=== PATIENT | female | born 1980 | race Caucasian/White ===

== ENCOUNTER 2017-05-16 22:18 | Emergency (ER) | payer SELFPAY ==
[2017-05-16 22:49] VITALS: RESP 18; TEMP 98.4
--- NOTE | 2017-05-16 23:19 | C.PDOC ---
History Of Present Illness The patient, who is currently around 8 weeks (), presents to the ED for evaluation of vaginal bleeding vs hematuria which began today. She denies fever, chills, nausea, vomiting. Time Seen by Provider: 05/16/17 23:18 Chief Complaint (Nursing): Female Genitourinary History Per: Patient History/Exam Limitations: no limitations Onset/Duration Of Symptoms: Hrs Current Symptoms Are (Timing): Still Present Recent travel outside of the [place]: No Additional History Per: Patient Past Medical History Reviewed: Historical Data, Nursing Documentation, Vital Signs Vital Signs: Last Vital Signs Temp 98.4 F 05/17/17 03:03 Pulse 81 05/17/17 03:03 Resp 18 05/17/17 03:03 BP 115/65 05/17/17 03:03 Pulse Ox 97 05/17/17 03:03 - Medical History PMH: No Chronic Diseases Surgical History: No Surg Hx Family History: States: Unknown Family Hx - Social History Hx Alcohol Use: No Hx Substance Use: No - Immunization History Hx Tetanus Toxoid Vaccination: No Review Of Systems Constitutional: Negative for: Fever, Chills Cardiovascular: Negative for: Chest Pain, Palpitations Respiratory: Negative for: Cough, Shortness of Breath Gastrointestinal: Negative for: Nausea, Vomiting, Diarrhea, Constipation Genitourinary: Positive for: Hematuria, Vaginal Bleeding Skin: Negative for: Rash, Lesions, Jaundice, Bruising Physical Exam - Physical Exam Appears: Non-toxic, No Acute Distress Skin: Normal Color, Warm, Dry Head: Normacephalic Oral Mucosa: Moist Neck: Supple Chest: Symmetrical, No Deformity, No Tenderness Cardiovascular: Rhythm Regular, No Murmur Respiratory: No Rales, No Rhonchi, No Wheezing Gastrointestinal/Abdominal: Soft, Tenderness (mild, suprapubic ), No Guarding, No Rebound Extremity: Normal ROM Neurological/Psych: Oriented x3 Gait: Steady ED Course And Treatment - Laboratory Results Result Diagrams: 05/16/17 23:33 05/16/17 23:33 O2 Sat by Pulse Oximetry: 100 (on RA) Pulse Ox Interpretation: Normal - CT Scan/US US Other Rad Studies (CT/US): Interpreted By Me, Read By Radiologist, Radiology Report Reviewed CT/US Interpretation: EXAM: US First Trimester, Transabdominal. CLINICAL HISTORY: 36 years old, female; Pain; complicated by abdominal or pelvic pain; Other: Bleeding;. Gestational age or lmp: 03-04-2017; ; Additional info: Abd pain, flank pain. TECHNIQUE: Real-time transabdominal obstetrical ultrasound of the maternal pelvis and a first trimester. with image documentation. COMPARISON: No relevant prior studies available. FINDINGS: Gestation: Gestational sac. No yolk sac. No pole. Mean sac diameter of 1.83 cm, correlating. with gestational age of 6 weeks 2 days. Uterus/cervix: Apparent 2.8 x 2.6 x 2.6 cm uterine mass. No subchorionic hemorrhage. No cervical. dilatation or effacement. Ovaries: RIGHT ovary: Not visualized. LEFT ovary: Normal. No adnexal masses. Free fluid : No significant free fluid. IMPRESSION: 1. Findings suspicious but not diagnostic of failure. Short-term sonographic followup is. recommended. 2. Possible fibroid. Progress Note: Bloodwork, UA, Pelvic US ordered and reviewed. Lactated Ringers Solution IV administered. Reevaluation Time: 02:56 Reassessment Condition: Improved Disposition Counseled Patient/Family Regarding: Studies Performed, Diagnosis, Need For Followup - Disposition Referrals: Mariajose Matthews MD [Primary Care Provider] - Disposition: HOME/ ROUTINE Disposition Time: 23:18 Condition: FAIR Instructions: Threatened Miscarriage (ED) Forms: [facility] (Greenlandic) - Clinical Impression Clinical Impression: Threatened - Scribe Statement The provider has reviewed the documentation as recorded by the Scribe (Kat Conway) Provider Attestation: All medical record entries made by the Scribe were at my direction and personally dictated by me. I have reviewed the chart and agree that the record accurately reflects my personal performance of the history, physical exam, medical decision making, and the department course for this patient. I have also personally directed, reviewed, and agree with the discharge instructions and disposition.
[2017-05-16] MEDS ORDERED: Lactated Ringer's 1,000 ML IV ONE (23:29)
[2017-05-16 23:38] LABS: WHITE BLOOD COUNT 11.3 K/uL (4.8-10.8)
[2017-05-16] MEDS ORDERED: Lactated Ringer's 1,000 ML ONE (23:42)
[2017-05-16 23:44] LABS: BASO % 0.4 % (0.0-2.0); EOS # 0.1 K/uL (0.0-0.7); EOS % 1.1 % (0.0-4.0); HEMATOCRIT 39.2 % (34.0-47.0); LYMPH # 4.4 K/uL (1.0-4.3); LYMPH % 39.4 % (20.0-40.0); MEAN CELL VOLUME 77.9 fL (81.0-99.0); MEAN CORPUSCULAR HEMOGLOBIN 25.2 pg (27.0-31.0); MEAN CORPUSCULAR HGB CONC 32.4 g/dL (33.0-37.0); MEAN PLATELET VOLUME 8.2 fL (7.2-11.7); MONO # 0.8 K/uL (0.0-0.8); NRBC % 0.6 % (0.0-2.0); RED CELL DISTRIBUTION WIDTH 14.8 % (11.5-14.5)
[2017-05-17] LABS: ALB/GLOB RATIO 1.3 (1.0-2.1); ALKALINE PHOSPHATASE 64 U/L (38-126); ALT/SGPT 28 U/L (9-52); AST/SGOT 23 U/L (14-36); BILIRUBIN,TOTAL 0.4 mg/dL (0.2-1.3); BLOOD UREA NITROGEN 9 mg/dL (7-17); CALCIUM 8.7 mg/dl (8.6-10.4); CARBON DIOXIDE 22 mmol/L (22-30); CHLORIDE 102 mmol/L (98-107); GFR AFRICAN-AMERICAN > 60; GLUCOSE,RANDOM 94 mg/dL (65-105); PH,URINE 5.5 (5.0-8.0); POTASSIUM 3.6 mmol/L (3.6-5.2); RBC URINE 200 /hpf (0-3); SODIUM 137 mmol/L (132-148); TOTAL PROTEIN 7.6 g/dL (6.3-8.3); URINE BILIRUBIN NEGATIVE (NEGATIVE); URINE BLOOD 3+ (NEGATIVE); URINE COLOR YELLOW (YELLOW); URINE GLUCOSE (UA) NEGATIVE (Normal); URINE KETONE NEGATIVE (NEGATIVE); URINE LEUKOCYTE ESTERASE NEGATIVE Leu/uL (Negative); URINE PROTEIN NEGATIVE (NEGATIVE); URINE UROBILINOGEN 0.2 mg/dL (0.2-1.0)
[2017-05-17 00:01] LABS: URINE BACTERIA OCC (<OCC); WBC URINE 3 /hpf (0-5)
--- NOTE | 2017-05-17 01:49 | US ---
EXAM: US First Trimester, Transabdominal CLINICAL HISTORY: 36 years old, female; Pain; complicated by abdominal or pelvic pain; Other: Bleeding; Gestational age or lmp: 03-04-2017; ; Additional info: Abd pain, flank pain TECHNIQUE: Real-time transabdominal obstetrical ultrasound of the maternal pelvis and a first trimester with image documentation. COMPARISON: No relevant prior studies available. FINDINGS: Gestation: Gestational sac. No yolk sac. No pole. Mean sac diameter of 1.83 cm, correlating with gestational age of 6 weeks 2 days. Uterus/cervix: Apparent 2.8 x 2.6 x 2.6 cm uterine mass. No subchorionic hemorrhage. No cervical dilatation or effacement. Ovaries: RIGHT ovary: Not visualized. LEFT ovary: Normal. No adnexal masses. Free fluid: No significant free fluid. IMPRESSION: 1. Findings suspicious but not diagnostic of failure. Short-term sonographic followup is recommended. 2. Possible fibroid.
[2017-05-17 03:04] VITALS: BP 115/65; PULSE 81
[2017-05-17 03:06] VITALS: O2SAT 100
== END 2017-05-17 03:18 | disposition home or self-care (01) ==
LOC: C.ER 22:18 → SUPCPDRO 22:18 → C.ER 05-17 03:18
DX: O20.0 Threatened abortion (principal); Z3A.01 Less than 8 weeks gestation of pregnancy
CPT/HCPCS: 76801; 80053; 81001; 83690; 84702; 84703; 85025; 85610; 85730; 86850; 86900; 99285; J7120

== ENCOUNTER 2017-05-18 23:47 | Emergency (ER) | payer SELFPAY ==
[2017-05-19] MEDS ORDERED: Lactated Ringer's 1,000 ML IV ONE (00:01)
--- NOTE | 2017-05-19 00:01 | C.PDOC ---
History Of Present Illness The patient, who is currently around 8 weeks (), presents to the ED for evaluation of worsening vaginal bleeding associated with abdominal pain which began around 2 days ago. Patient was evaluated in this ED two days ago for same complaint, and found to have hCG count around 4000. Patient followed up with her METROLOGY TECHNICIAN, who states patient's hCG count was around 90,000 at the time of her previous visit. Patient denies fever, chills. Time Seen by Provider: 05/18/17 23:59 Chief Complaint (Nursing): Female Genitourinary History Per: Patient History/Exam Limitations: no limitations Onset/Duration Of Symptoms: Days (2) Current Symptoms Are (Timing): Worse Severity: Moderate Pain Scale Rating Of: 4 Quality Of Discomfort: Cramping, "Pain" Associated Symptoms: denies: Fever, Chills Alleviating Factors: None Recent travel outside of the [place]: No Additional History Per: Patient Abnormal Vaginal Bleeding: Yes Past Medical History Reviewed: Historical Data, Nursing Documentation, Vital Signs Vital Signs: Last Vital Signs Temp 98.2 F 05/19/17 02:13 Pulse 70 05/19/17 02:13 Resp 20 05/19/17 02:13 BP 123/70 05/19/17 02:13 Pulse Ox 100 05/19/17 03:29 - Medical History PMH: No Chronic Diseases Surgical History: No Surg Hx Family History: States: Unknown Family Hx - Social History Hx Alcohol Use: No Hx Substance Use: No - Immunization History Hx Tetanus Toxoid Vaccination: No Hx Influenza Vaccination: No Hx Pneumococcal Vaccination: No Review Of Systems Constitutional: Negative for: Fever, Chills Cardiovascular: Negative for: Chest Pain, Palpitations Respiratory: Negative for: Cough, Shortness of Breath Gastrointestinal: Positive for: Abdominal Pain. Negative for: Nausea, Vomiting , Diarrhea Genitourinary: Positive for: Vaginal Bleeding Musculoskeletal: Negative for: Back Pain Skin: Negative for: Rash, Lesions, Jaundice, Bruising Neurological: Negative for: Weakness, Numbness Physical Exam - Physical Exam Appears: Non-toxic, No Acute Distress Skin: Normal Color, Warm, Dry Head: Normacephalic Eye(s): bilateral: Normal Inspection Oral Mucosa: Moist Neck: Supple Chest: Symmetrical, No Deformity, No Tenderness Cardiovascular: Rhythm Regular, No Murmur Respiratory: No Rales, No Rhonchi, No Wheezing Gastrointestinal/Abdominal: Soft, Tenderness (mild, suprapubic ), No Guarding, No Rebound Back: No CVA Tenderness Extremity: Normal ROM Extremity: Bilateral: Atraumatic Pulses: Left Dorsalis Pedis: Normal, Right Dorsalis Pedis: Normal Neurological/Psych: Oriented x3, Normal Speech, Normal Cognition Gait: Steady ED Course And Treatment - Laboratory Results Result Diagrams: 05/19/17 00:15 05/19/17 00:15 O2 Sat by Pulse Oximetry: 100 (on RA) Pulse Ox Interpretation: Normal Progress Note: Bloodwork, UA, Pelvic US ordered and reviwewed. Morphine IVP, Zofran IVP, and Lactated Ringers IV Solution administered. spoke with dr hinds(labor gang supervisor) ok to discharge and follow up in clinic. Disposition Counseled Patient/Family Regarding: Studies Performed, Diagnosis, Need For Followup, Rx Given - Disposition Referrals: [facility] [Outside] [facility] [Outside] Disposition: HOME/ ROUTINE Disposition Time: 00:01 Condition: FAIR Prescriptions: Ondansetron ODT [Zofran ODT] 1 odt PO BID PRN #6 odt PRN Reason: Nausea/Vomiting oxyCODONE/Acetaminophen [Percocet 5/325 mg Tab] 1 tab PO TID #12 tab Instructions: Threatened Miscarriage (ED) Forms: [facility] (Uzbek) - Clinical Impression Clinical Impression: Threatened - Scribe Statement The provider has reviewed the documentation as recorded by the Scribe (Kat Conway) Provider Attestation: All medical record entries made by the Scribe were at my direction and personally dictated by me. I have reviewed the chart and agree that the record accurately reflects my personal performance of the history, physical exam, medical decision making, and the department course for this patient. I have also personally directed, reviewed, and agree with the discharge instructions and disposition.
[2017-05-19] MEDS ORDERED: Lactated Ringer's 1,000 ML ONE (00:06)
[2017-05-19 00:23] LABS: INR 1.1
[2017-05-19 00:24] LABS: BASO # 0.1 K/uL (0.0-0.2); BASO % 0.3 % (0.0-2.0); EOS # 0.1 K/uL (0.0-0.7); EOS % 0.4 % (0.0-4.0); HEMATOCRIT 38.1 % (34.0-47.0); LYMPH # 3.6 K/uL (1.0-4.3); LYMPH % 23.1 % (20.0-40.0); MEAN CELL VOLUME 77.8 fL (81.0-99.0); MEAN CORPUSCULAR HEMOGLOBIN 25.5 pg (27.0-31.0); MEAN CORPUSCULAR HGB CONC 32.8 g/dL (33.0-37.0); MEAN PLATELET VOLUME 8.4 fL (7.2-11.7); MONO # 1.1 K/uL (0.0-0.8); MONO % 6.7 % (0.0-10.0); RED CELL DISTRIBUTION WIDTH 14.8 % (11.5-14.5); WHITE BLOOD COUNT 15.6 K/uL (4.8-10.8)
--- NOTE | 2017-05-19 01:33 | US ---
EXAM: US , Transvaginal CLINICAL HISTORY: 36 years old, female; Signs and symptoms; Lmp or gestational age (in weeks): 03/04/2017; Other: Vaginal bleeding; ; Additional info: Vaginal bleeding, 6 weeks TECHNIQUE: Real-time transvaginal obstetrical ultrasound of the maternal pelvis and a first trimester with image documentation. Transvaginal imaging was used for better evaluation of the fetus and adnexa. COMPARISON: US - 1ST TRIMESTER SINGLE 2017-05-17 00:40 FINDINGS: Gestation: Gestational sac. No yolk sac. No pole. Mean sac diameter of 1.94 cm, correlating with gestational age of 6 weeks 3 days. Uterus/cervix: No subchorionic hemorrhage. No cervical dilatation or effacement. Ovaries: Normal ovaries. No adnexal masses. Free fluid: No significant free fluid. IMPRESSION: 1. Findings suspicious but not diagnostic of failure. Short-term sonographic followup is recommended.
[2017-05-19 02:02] LABS: ALB/GLOB RATIO 1.3 (1.0-2.1); ALKALINE PHOSPHATASE 62 U/L (38-126); ALT/SGPT 25 U/L (9-52); AST/SGOT 20 U/L (14-36); BILIRUBIN,TOTAL 0.4 mg/dL (0.2-1.3); BLOOD UREA NITROGEN 8 mg/dL (7-17); CALCIUM 9.1 mg/dl (8.6-10.4); CARBON DIOXIDE 24 mmol/L (22-30); CHLORIDE 101 mmol/L (98-107); GFR AFRICAN-AMERICAN > 60; GLUCOSE,RANDOM 105 mg/dL (65-105); POTASSIUM 3.9 mmol/L (3.6-5.2); SODIUM 136 mmol/L (132-148); TOTAL PROTEIN 7.6 g/dL (6.3-8.3)
[2017-05-19 02:14] VITALS: RESP 20; TEMP 98.2
[2017-05-19 03:36] VITALS: BP 123/62; PULSE 74; O2SAT 99
== END 2017-05-19 03:36 | disposition home or self-care (01) ==
LOC: C.ER 23:47
DX: O20.0 Threatened abortion (principal); Z3A.01 Less than 8 weeks gestation of pregnancy
CPT/HCPCS: 76817; 80053; 84702; 85025; 85610; 85730; 86850; 86900; 96361; 96374; 96375; 99285; J1885; J2270; J2405; J7120

== ENCOUNTER 2017-05-19 16:51 | Emergency (ER) | payer OTHER ==
[2017-05-19 16:56] VITALS: TEMP 98
--- NOTE | 2017-05-19 17:22 | C.PDOC ---
History Of Present Illness 36 year old female presents to ED for evaluation of lower abdominal cramping pain, nausea, vomiting, and vaginal bleeding. Patient was seen and discharged from this ED last night with diagnosis of miscarriage. Patient reports she took the medication prescribed to her which made her vomit. Patient did not try another analgesic and comes back to ED with complaints of pain and still bleeding. Otherwise, denies any dizziness, lightheadedness, fever, or other complaints at this time. Time Seen by Provider: 05/19/17 17:05 Chief Complaint (Nursing): Female Genitourinary History Per: Patient, Family History/Exam Limitations: no limitations Onset/Duration Of Symptoms: Days Current Symptoms Are (Timing): Still Present Quality Of Discomfort: "Pain" Associated Symptoms: Nausea, Vomiting. denies: Diarrhea, Loss Of Appetite, Back Pain, Chest Pain, Constipation, Urinary Symptoms Alleviating Factors: None Recent travel outside of the [place]: No Additional History Per: Patient Abnormal Vaginal Bleeding: Yes Past Medical History Reviewed: Historical Data, Nursing Documentation, Vital Signs Vital Signs: Last Vital Signs Temp 98.0 F 05/19/17 16:54 Pulse 88 05/19/17 18:46 Resp 16 05/19/17 18:46 BP 127/82 05/19/17 18:46 Pulse Ox 99 05/19/17 18:46 - Medical History PMH: No Chronic Diseases Surgical History: Family History: States: Unknown Family Hx - Social History Hx Alcohol Use: No Hx Substance Use: No - Immunization History Hx Tetanus Toxoid Vaccination: No Hx Influenza Vaccination: No Hx Pneumococcal Vaccination: No Review Of Systems Except As Marked, All Systems Reviewed And Found Negative. Constitutional: Negative for: Fever, Chills Cardiovascular: Negative for: Chest Pain, Palpitations, Light Headedness Respiratory: Negative for: Shortness of Breath Gastrointestinal: Positive for: Nausea, Vomiting, Abdominal Pain. Negative for : Diarrhea, Constipation Genitourinary: Positive for: Vaginal Bleeding. Negative for: Dysuria, Frequency Musculoskeletal: Negative for: Back Pain Neurological: Negative for: Headache, Dizziness Physical Exam - Physical Exam Appears: Non-toxic, Other (Uncomfortable) Skin: Normal Color, Warm, Dry Head: Atraumatic, Normacephalic Eye(s): bilateral: Normal Inspection Oral Mucosa: Moist Neck: Normal ROM, Supple Chest: Symmetrical Cardiovascular: Rhythm Regular, No Murmur Respiratory: Normal Breath Sounds, No Rales, No Rhonchi, No Wheezing Gastrointestinal/Abdominal: Soft, Tenderness (suprapubic), No Distention, No Guarding, No Rebound Back: No CVA Tenderness Extremity: Normal ROM, No Tenderness, No Deformity, No Swelling Neurological/Psych: Oriented x3, Normal Speech Gait: Steady ED Course And Treatment O2 Sat by Pulse Oximetry: 98 (RA) Pulse Ox Interpretation: Normal Medical Decision Making Medical Decision Making: Prior records reviewed patient has been seen in ED twice for this . Last visit last night and told having miscarriage. Hgb was WNL. Patient treated with meds. US shows gestational sac, no yolk sac, no pole. Case had been discussed with rubber moulding machine operator exploration engineer Dr Humphrey and stable for discharge. Patient took the percocet which made her vomit and complains of nausea and pain. Will order Toradol and Zofran. On re-evaluation she feels unchanged. Percocet PO ordered. On re-evaluation she states feeling mildly better. I explained to the patient at length she is having a miscarriage and to expect cramps and bleeding. Recommend bed rest, oral fluids, and pain medications as needed for symptoms. Instruct her to follow up with her rubber moulding machine operator or clinic in another 48 hours for further evaluation Disposition Counseled Patient/Family Regarding: Diagnosis, Need For Followup, Rx Given - Disposition Referrals: [facility] [Outside] [facility] [Outside] [facility] [Outside] [facility] [Outside] Disposition: HOME/ ROUTINE Disposition Time: 18:40 Condition: STABLE Additional Instructions: You are having a miscarriage. You will experience abdominal or back pain, including cramps that may be mild to severe. Please allow bed rest for the next few days and take pain medicine as needed. Take Ibuprofen with foot to not upset stomach. You will also experience vaginal bleeding from light to heavy. Your bleeding will lighten and lessen after miscarriage, but bleeding may also last 2-3 weeks. Your next period should return in 4-8 weeks. You may use sanitary napkins. Do not take bath, go swimming or douche for 2 weeks. You may also experience nausea, chills or diarrhea. It is important that you follow up with rubber moulding machine operator after miscarriage. If you do not have one please follow up in the clinic and refer to list of names provided to you at discharge. Prescriptions: Ibuprofen [Motrin] 600 mg PO Q8 #30 tab Instructions: Spontaneous Miscarriage (ED) Forms: [facility] (Polish) - POA Present On Arrival: None - Clinical Impression Clinical Impression: Spontaneous - PA / BLOOD BANK LABORATORY TECHNICIAN / Resident Statement MD/DO has reviewed & agrees with the documentation as recorded. - Scribe Statement The provider has reviewed the documentation as recorded by the Scribe Ana Conway All medical record entries made by the Jackieibjuan josé were at my direction and personally dictated by me. I have reviewed the chart and agree that the record accurately reflects my personal performance of the history, physical exam, medical decision making, and the department course for this patient. I have also personally directed, reviewed, and agree with the discharge instructions and disposition.
[2017-05-19] MEDS ORDERED: Oxycodone/Acetaminophen 5/325 mg Tab PO STA (18:05)
[2017-05-19] MEDS ORDERED: Oxycodone/Acetaminophen 5/325 mg Tab ONE (18:13)
[2017-05-19 18:46] VITALS: BP 127/82; PULSE 88; RESP 16
[2017-05-20 08:44] VITALS: O2SAT 98
== END 2017-05-19 18:47 | disposition home or self-care (01) ==
LOC: C.ER 16:51
DX: O03.9 Complete or unspecified spontaneous abortion without complication (principal)
CPT/HCPCS: 96372; 99284; J1885

== ENCOUNTER 2017-05-26 14:47 | Emergency (ER) | payer SELFPAY ==
[2017-05-26] MEDS ORDERED: Sodium Chloride 0.9% 1,000 ML IV ONE (15:50)
--- NOTE | 2017-05-26 16:39 | C.PDOC ---
History Of Present Illness <Sylvia Ac - Last Filed: 05/26/17 18:38> <Shelia Hutchinson A - Last Filed: 05/26/17 19:39> 36 y/o female, , sent to ED from OBGYN Dr Morgan office for evaluation of vaginal bleeding with clots. Pt states she had miscarriage on 05/16/17 and continues to have vaginal bleeding. Denies n/v/d, or any other complaints at this time. (Sylvia Ac) History Per: Patient History/Exam Limitations: no limitations Onset/Duration Of Symptoms: Days Current Symptoms Are (Timing): Still Present Quality Of Discomfort: Cramping Additional History Per: Family Abnormal Vaginal Bleeding: Yes : 2 Para: 1 Miscarriage: 1 <Sylvia Ac Cindy - Last Filed: 05/26/17 18:38> <Shelia Hutchinson A - Last Filed: 05/26/17 19:39> Time Seen by Provider: 05/26/17 15:49 Chief Complaint (Nursing): Female Genitourinary Past Medical History Reviewed: Historical Data, Nursing Documentation, Vital Signs - Medical History PMH: No Chronic Diseases Surgical History: Family History: States: Unknown Family Hx - Social History Hx Alcohol Use: No Hx Substance Use: No - Immunization History Hx Tetanus Toxoid Vaccination: No Hx Influenza Vaccination: No Hx Pneumococcal Vaccination: No <Sylvia Ac Cindy - Last Filed: 05/26/17 18:38> Vital Signs: Last Vital Signs Temp 99.1 F 05/26/17 19:22 Pulse 98 H 05/26/17 19:22 Resp 18 05/26/17 19:22 BP 103/71 05/26/17 19:22 Pulse Ox 98 05/26/17 19:22 Review Of Systems Except As Marked, All Systems Reviewed And Found Negative. Constitutional: Negative for: Fever, Chills Cardiovascular: Negative for: Chest Pain, Palpitations Respiratory: Negative for: Shortness of Breath Gastrointestinal: Positive for: Abdominal Pain. Negative for: Nausea, Vomiting , Diarrhea, Constipation Genitourinary: Positive for: Vaginal Bleeding. Negative for: Dysuria, Frequency Musculoskeletal: Negative for: Back Pain <Sylvia Ac - Last Filed: 05/26/17 18:38> Physical Exam - Physical Exam Appears: Non-toxic, No Acute Distress Skin: Normal Color, Warm, Dry Head: Atraumatic, Normacephalic Eye(s): bilateral: Normal Inspection Cardiovascular: Rhythm Regular, No Murmur Respiratory: Normal Breath Sounds, No Rales, No Rhonchi, No Wheezing Gastrointestinal/Abdominal: Soft, Tenderness (mild suprapubic), No Guarding, No Rebound Extremity: Normal ROM Neurological/Psych: Oriented x3, Normal Speech Gait: Steady <Sylvia Ac - Last Filed: 05/26/17 18:38> ED Course And Treatment - Laboratory Results Result Diagrams: 05/26/17 16:42 05/26/17 16:42 Lab Interpretation: No Acute Changes Urine POC: Positive O2 Sat by Pulse Oximetry: 100 Pulse Ox Interpretation: Normal - CT Scan/US No standard instances Other Rad Studies (CT/US): Read By Radiologist, Radiology Report Reviewed CT/US Interpretation: FINDINGS: UTERUS: Measures 5 x 5.8 x 8.5 cm. Normal in size and appearance. Location of fibroid and size: Anterior measuring 2.1 x 2.2 x 2.2 cm. ENDOMETRIUM: Measures 16.0 mm in diameter. Thickened irregular at heterogeneous endometrium. No visible products of conception. CERVIX: Free fluid identified within the cervical canal. RIGHT OVARY: Measures 1.5 x 2.9 x 2.7 cm. No solid mass. Normal flow. Multiple subcentimeter follicles. LEFT OVARY: Measures 1.6 x 2.7 x 3 cm. No solid mass. Normal flow. Multiple subcentimeter follicles. FREE FLUID: No significant free fluid noted. OTHER FINDINGS: None. IMPRESSION: Thickened heterogeneous endometrium without appreciable increase in vascularity. No visible products of conception within the uterus or adnexal regions. Fluid identified in the cervical canal consistent with history. Progress Note: Blood work, UA, OB transvaginal ultrasound ordered and reviewed. Pt was given IV fluids. Treated with cytotec 400 mcg into vagina. Discharge to home in stable condition Reassessment Condition: Unchanged - Physician Consult Information Physician Contacted: Amparo Morgan Outcome Of Conversation: cytotec and discharge <Sylvia Ac - Last Filed: 05/26/17 18:38> - Laboratory Results Result Diagrams: 05/26/17 16:42 05/26/17 16:42 <Shelia Hutchinson - Last Filed: 05/26/17 19:39> Medical Decision Making <Sylvia Ac - Last Filed: 05/26/17 18:38> <Shelia Hutchinson - Last Filed: 05/26/17 19:39> Medical Decision Making: Case discussed with Dr Amparo Morgan regarding vaginal bleeding S/P miscarage and request cytotec 400 mcg into vagina and follow up in office on monday (Sylvia Ac) Disposition Discussed With Dr.: Amparo Morgan Doctor Will See Patient In The: Office Counseled Patient/Family Regarding: Studies Performed, Diagnosis, Need For Followup, Rx Given - Disposition Disposition Time: 18:30 - POA Present On Arrival: None <Sylvia Ac - Last Filed: 05/26/17 18:38> <Shelia Hutchinson - Last Filed: 05/26/17 19:39> - Disposition Referrals: Amparo Morgan MD [Staff Provider] - Disposition: HOME/ ROUTINE Condition: STABLE Additional Instructions: Follow up with Dr Morgan on monday for further evaluation Prescriptions: Naproxen [Naprosyn] 1 tab PO BID PRN #25 tab PRN Reason: Pain Instructions: Spontaneous Miscarriage (ED) Forms: [facility] (Upper Sorbian) - Clinical Impression Clinical Impression: Spontaneous - PA / SPEECH THERAPIST / Resident Statement MD/DO has reviewed & agrees with the documentation as recorded. - Scribe Statement The provider has reviewed the documentation as recorded by the Scribe <Sylvia Ac - Last Filed: 05/26/17 18:38> <Shelia Hutchinson - Last Filed: 05/26/17 19:39> - Scribe Statement Ana Conway All medical record entries made by the Scribe were at my direction and personally dictated by me. I have reviewed the chart and agree that the record accurately reflects my personal performance of the history, physical exam, medical decision making, and the department course for this patient. I have also personally directed, reviewed, and agree with the discharge instructions and disposition. (Sylvia Ac
[2017-05-26 16:52] LABS: BASO # 0.1 K/uL (0.0-0.2); BASO % 0.8 % (0.0-2.0); EOS # 0.1 K/uL (0.0-0.7); EOS % 1.2 % (0.0-4.0); HEMATOCRIT 39.1 % (34.0-47.0); LYMPH # 3.3 K/uL (1.0-4.3); LYMPH % 28.5 % (20.0-40.0); MEAN CELL VOLUME 78.3 fL (81.0-99.0); MEAN CORPUSCULAR HEMOGLOBIN 25.7 pg (27.0-31.0); MEAN CORPUSCULAR HGB CONC 32.8 g/dL (33.0-37.0); MONO # 0.8 K/uL (0.0-0.8); MONO % 7.2 % (0.0-10.0); RED CELL DISTRIBUTION WIDTH 14.9 % (11.5-14.5); WHITE BLOOD COUNT 11.6 K/uL (4.8-10.8)
[2017-05-26 16:58] LABS: RBC URINE 14 /hpf (0-3); URINE BACTERIA RARE (<OCC); URINE BILIRUBIN NEGATIVE (NEGATIVE); URINE BLOOD 3+ (NEGATIVE); URINE COLOR Yellow (YELLOW); URINE GLUCOSE (UA) NORMAL (Normal); URINE KETONE NEGATIVE (NEGATIVE); URINE LEUKOCYTE ESTERASE TRACE Leu/uL (Negative); URINE PROTEIN NEGATIVE (NEGATIVE); URINE UROBILINOGEN NORMAL mg/dL (0.2-1.0); WBC URINE 7 /hpf (0-5)
[2017-05-26 17:06] LABS: ALB/GLOB RATIO 1.2 (1.0-2.1); ALKALINE PHOSPHATASE 74 U/L (38-126); ALT/SGPT 28 U/L (9-52); AST/SGOT 29 U/L (14-36); BILIRUBIN,TOTAL 0.4 mg/dL (0.2-1.3); BLOOD UREA NITROGEN 11 mg/dL (7-17); CALCIUM 8.8 mg/dl (8.6-10.4); CARBON DIOXIDE 23 mmol/L (22-30); CHLORIDE 104 mmol/L (98-107); GFR AFRICAN-AMERICAN > 60; GLUCOSE,RANDOM 98 mg/dL (65-105); POTASSIUM 3.9 mmol/L (3.6-5.2); SODIUM 140 mmol/L (132-148); TOTAL PROTEIN 8.5 g/dL (6.3-8.3)
[2017-05-26 17:59] VITALS: RESP 18
--- NOTE | 2017-05-26 18:11 | US ---
HISTORY: Abdominal pain, bleeding. Menstrual status: LMP 03/04/2017. By history, negative test (concurrent with this examination). Negative urine HCG . COMPARISON: 05/19/2017. Summary of findings on the comparison examination: Gestation: Gestational sac. No yolk sac. No pole. Mean sac diameter of 1.94 cm, correlating with gestational age of 6 weeks 3 days. TECHNIQUE: Transabdominal, transvaginal. Real -time technique with 2D, duplex and color Doppler. FINDINGS: UTERUS: Measures 5 x 5.8 x 8.5 cm. Normal in size and appearance. Location of fibroid and size: Anterior measuring 2.1 x 2.2 x 2.2 cm ENDOMETRIUM: Measures 16.0 mm in diameter. Thickened irregular at heterogeneous endometrium. No visible products of conception. CERVIX: Free fluid identified within the cervical canal. RIGHT OVARY: Measures 1.5 x 2.9 x 2.7 cm. No solid mass. Normal flow. Multiple subcentimeter follicles. LEFT OVARY: Measures 1.6 x 2.7 x 3 cm. No solid mass. Normal flow. Multiple subcentimeter follicles. FREE FLUID: No significant free fluid noted. OTHER FINDINGS: None. IMPRESSION: Thickened heterogeneous endometrium without appreciable increase in vascularity. No visible products of conception within the uterus or adnexal regions. Fluid identified in the cervical canal consistent with history.
[2017-05-26 19:23] VITALS: BP 103/71; TEMP 99.1; O2SAT 98
[2017-05-26 19:26] VITALS: PULSE 98
== END 2017-05-26 19:30 | disposition home or self-care (01) ==
LOC: C.ER 14:47
DX: O03.9 Complete or unspecified spontaneous abortion without complication (principal)
CPT/HCPCS: 76830; 76856; 80053; 81001; 84702; 84703; 85025; 86850; 86900; 96360; 99285; J7040

== ENCOUNTER 2018-03-08 13:44 | Emergency (ER) | payer OTHER ==
[2018-03-08 13:56] VITALS: O2SAT 99
[2018-03-08 14:27] LABS: BASO # 0.1 K/uL (0.0-0.2); EOS # 0.2 K/uL (0.0-0.7); EOS % 1.6 % (0.0-4.0); HEMOGLOBIN 12.6 g/dL (11.0-16.0); LYMPH # 4.5 K/uL (1.0-4.3); LYMPH % 39.5 % (20.0-40.0); MEAN CELL VOLUME 75.2 fL (81.0-99.0); MEAN CORPUSCULAR HEMOGLOBIN 25.1 pg (27.0-31.0); MEAN CORPUSCULAR HGB CONC 33.3 g/dL (33.0-37.0); MEAN PLATELET VOLUME 8.2 fL (7.2-11.7); MONO # 0.8 K/uL (0.0-0.8); MONO % 7.3 % (0.0-10.0); NEUT # 5.7 K/uL (1.8-7.0); NEUT % 50.6 % (50.0-75.0); NRBC % 0.1 % (0.0-2.0); RBC 5.04 Mil/uL (3.80-5.20); RED CELL DISTRIBUTION WIDTH 15.2 % (11.5-14.5); WHITE BLOOD COUNT 11.3 K/uL (4.8-10.8)
[2018-03-08 14:34] LABS: INR 1.1; PROTHROMBIN TIME 11.8 SECONDS (9.7-12.2)
[2018-03-08 14:41] LABS: ALB/GLOB RATIO 1.3 (1.0-2.1); ALBUMIN 4.6 g/dL (3.5-5.0); ALT/SGPT 8 U/L (9-52); AST/SGOT 18 U/L (14-36); BLOOD UREA NITROGEN 8 mg/dL (7-17); CALCIUM 9.9 mg/dl (8.6-10.4); GFR NON-AFRICAN AMERICAN > 60; HDL CHOLESTEROL 45 mg/dL (30-70)
[2018-03-08 14:52] LABS: LDL CHOLESTEROL 143 mg/dL (0-129)
[2018-03-08 14:55] LABS: SQUAMOUS EPITHIAL < 1 /hpf (0-5); URINE BACTERIA RARE (<OCC); URINE BILIRUBIN NEGATIVE (NEGATIVE); URINE BLOOD NEGATIVE (NEGATIVE); URINE CLARITY Clear (Clear); URINE COLOR Colorless (YELLOW); URINE GLUCOSE (UA) NORMAL (Normal); URINE LEUKOCYTE ESTERASE NEG Leu/uL (Negative); URINE PROTEIN NEGATIVE (NEGATIVE); URINE UROBILINOGEN NORMAL mg/dL (0.2-1.0)
--- NOTE | 2018-03-08 14:59 | RAD ---
Date of service: 03/08/2018 HISTORY: adm, seizure COMPARISON: No prior. FINDINGS: LUNGS: No active pulmonary disease. PLEURA: No significant pleural effusion identified, no pneumothorax apparent. CARDIOVASCULAR: No radiographic findings to suggest acute or significant cardiovascular disease. OSSEOUS STRUCTURES: No significant abnormalities. VISUALIZED UPPER ABDOMEN: Normal. OTHER FINDINGS: None. IMPRESSION: No active disease. Concordant results with the preliminary interpretation rendered by the emergency department physician procedure.
[2018-03-08 15:00] LABS: HCG,QUALITATIVE URINE NEGATIVE (NEGATIVE)
--- NOTE | 2018-03-08 15:40 | CT ---
Date of service: 2018-03-08 14:49:14 PROCEDURE: CT HEAD WITHOUT CONTRAST. HISTORY: seizures, R body weak, + abn CT in [place] COMPARISON: None available. TECHNIQUE: Axial computed tomography images were obtained through the head/brain without intravenous contrast. Radiation dose: Total exam DLP = 1037 mGy-cm. This CT exam was performed using one or more of the following dose reduction techniques: Automated exposure control, adjustment of the mA and/or kV according to patient size, and/or use of iterative reconstruction technique. FINDINGS: HEMORRHAGE: No intracranial hemorrhage. BRAIN: There is a large hypodense area measuring at least 4.2 x 4.4 cm on axial series 4, image 45 in the left paracentral posterior frontal parietal region. A smaller hypodense masslike hypodensity with surrounding peripheral edema is favored. Purse ice location intra versus extra-axial is not clear.-there is ipsilateral partial left cerebral sulcal effacement paddle with ipsilateral left cerebral edema. No el midline shift is noted. There is however some mass effect on the right interhemispheric falx. There is trace increased CSF like density to the right of the interhemispheric falx on axial series 4, image 32. No dilatation or significant asymmetry of the lateral ventricles is seen. VENTRICLES: Unremarkable. No hydrocephalus. As above. Mild developmental ventricular anomalous development is noted.. There is sub possible minimal fullness to the 3rd ventricle. The 4th ventricle is normal in size. CALVARIUM: Unremarkable. PARANASAL SINUSES: Unremarkable as visualized. No significant inflammatory changes. MASTOID AIR CELLS: Unremarkable as visualized. No inflammatory changes. OTHER FINDINGS: None. IMPRESSION: Left paracentral large masslike hypodensity with surrounding edema.. Diagnosis of exclusion is a intracranial mass. Ischemia/infarct changes are not excluded. An MRI of the brain without with contrast with diffusion-weighted imaging is recommended for further evaluation. Comments: Prior to this dictation findings were discussed with the ER physician Dr. Garfield Santos
--- NOTE | 2018-03-08 16:15 | C.PDOC ---
History Of Present Illness 37 year old female with history of seizures presents to the ED for further evaluation of a left brain mass vaguely noted in a CAT scan taken in [place] earlier this month. Patient reports left upper head discomfort with occasional right arm and bilateral leg numbness with paresthesia, and weakness leading to bereft tonic-clonic seizures with postictal phase lasting 15-20 minutes for the last 2 years. Reports feeling completely normal after the episode. Notes seizure are infrequent. Denies changes in vision, weight loss, fever and any other associated symptoms. Time Seen by Provider: 03/08/18 14:05 Chief Complaint (Nursing): Lower Extremity Problem/Injury History Per: Patient History/Exam Limitations: no limitations Number Of Seizures: One Length Of Seizures (Duration): Minutes Past Medical History Reviewed: Historical Data, Nursing Documentation, Vital Signs Vital Signs: Last Vital Signs Temp 98.4 F 03/08/18 13:52 Pulse 99 H 03/08/18 13:52 Resp 20 03/08/18 13:52 BP 123/85 03/08/18 13:52 Pulse Ox 99 03/08/18 13:52 Surgical History: Family History: States: Unknown Family Hx - Social History Hx Alcohol Use: No Hx Substance Use: No - Immunization History Hx Tetanus Toxoid Vaccination: No Hx Influenza Vaccination: No Hx Pneumococcal Vaccination: No Review Of Systems Except As Marked, All Systems Reviewed And Found Negative. Constitutional: Positive for: Weakness (before seizures start), Other (left upper head discomfort). Negative for: Fever, Weight loss Eyes: Negative for: Vision Change Physical Exam - Physical Exam Appears: Non-toxic Skin: Normal Color, Warm, Dry Head: Atraumatic, Normacephalic, Other (vague mass presented in film of CAT scan. muscle mass bilaterally. ) Eye(s): bilateral: Normal Inspection Oral Mucosa: Moist Neck: Normal ROM, Supple Chest: Symmetrical, No Deformity Cardiovascular: Rhythm Regular Respiratory: Normal Breath Sounds, No Accessory Muscle Use, Other (No acute respiratory distress) Extremity: Normal ROM (x4) Neurological/Psych: Oriented x3, Normal Speech, Normal Motor, Normal Sensation Gait: Steady ED Course And Treatment - Laboratory Results Result Diagrams: 03/08/18 14:23 03/08/18 14:23 Lab Interpretation: Normal (ua neg.) Urine POC: Negative ECG: Interpreted By Me ECG Rhythm: Sinus Rhythm ECG Interpretation: Normal Rate From EC O2 Sat by Pulse Oximetry: 99 (RA) Pulse Ox Interpretation: Normal - Radiology CXR: Interpreted by Me CXR Interpretation: Yes: No Acute Disease - Other Rad CXR X-Ray: Viewed By Me, Read By Radiologist Interpretation: IMPRESSION: No active disease. - CT Scan/US CT Head Other Rad Studies (CT/US): Read By Radiologist CT/US Interpretation: IMPRESSION: Left paracentral large masslike hypodensity with surrounding edema.. Diagnosis of exclusion is a intracranial mass. Ischemia/infarct changes are not excluded. An MRI of the brain without with contrast with diffusion-weighted imaging is recommended for further evaluation. Comments: Prior to this dictation findings were discussed with the ER physician Dr. Garfield Santos Progress Note: keppra PO Reevaluation Time: 16:13 Reassessment Condition: Unchanged (remains asymptomatic) - Physician Consult Information Outcome Of Conversation: 1540 d/w Dr. Munoz- NSGY electrical construction project manager- recommends non- emrgent f/u @ [facility] NSGY as pt requires Neuro Navigation instruments not available in the [employer] System. Medical Decision Making Medical Decision Making: indolent course over 2 yrs, with occasional seizures (prob exacerbated by long travel from [place] yesterday) and already had + CT results in hand from [facility] from earlier this month. Appropriate NSGY care not available here, started on Keppra and opt f/u @ [facility] instructed. Inpatient Medicine eval not required at this time as no further seizure activity since yesterday, tolerating Keppra PO well, not driving (and instructing not to) has constant supervision (/daughter @home, normal neuro exam, and high confidence pt and family can f/u @ [facility] tomorrow. No ED to ED transfer required at this time. Plan --CT Head w/o Contrast --CXR --EKG --Blood sent. --Urinalysis --Urine HCG --Given Keppra Update/Progress: --Paged network professional neurologist Dr. Ochoa,pending call-back --Consulted with hospitalist, Dr. Akers regarding CT of the head. Disposition Doctor Will See Patient In The: Office Counseled Patient/Family Regarding: Studies Performed, Diagnosis - Disposition Referrals: [facility] [Outside] [employer] [facility] [Outside] [facility] [Outside] Yue Ochoa MD [Staff Provider] - Disposition: HOME/ ROUTINE Disposition Time: 16:15 Condition: GOOD Additional Instructions: take Keppra 500 mg twice a day to help prevent seizures Follow-up @ [facility] NeuroSurgery- call for appt or present to their ER the brain mass you have may require NeuroNavigation Equipment not available in the [employer] [facility] May follow-up w Dr. Ochoa- Neurologist- regarding seizure medicines and seizures probably related to your brain mass. Prescriptions: levETIRAcetam [Keppra] 500 mg PO BID #60 tab Instructions: Seizures, Adult (DC), Brain Tumor, Adult (DC) Forms: [employer] (Tajik) - Clinical Impression Clinical Impression: Brain mass, Seizure - Scribe Statement The provider has reviewed the documentation as recorded by the Scribe (Barby Balderas) Provider Attestation: All medical record entries made by the Scribe were at my direction and personally dictated by me. I have reviewed the chart and agree that the record accurately reflects my personal performance of the history, physical exam, medical decision making, and the department course for this patient. I have also personally directed, reviewed, and agree with the discharge instructions and disposition.
--- NOTE | 2018-03-08 16:15 | C.PDOC ---
Time Seen by Provider: 03/08/18 14:05 Chief Complaint (Nursing): Lower Extremity Problem/Injury Past Medical History Vital Signs: Last Vital Signs Temp 98.4 F 03/08/18 13:52 Pulse 99 H 03/08/18 13:52 Resp 20 03/08/18 13:52 BP 123/85 03/08/18 13:52 Pulse Ox 99 03/08/18 13:52 Surgical History: Family History: States: Unknown Family Hx - Social History Hx Alcohol Use: No Hx Substance Use: No - Immunization History Hx Tetanus Toxoid Vaccination: No Hx Influenza Vaccination: No Hx Pneumococcal Vaccination: No ED Course And Treatment - Laboratory Results Result Diagrams: 03/08/18 14:23 03/08/18 14:23 O2 Sat by Pulse Oximetry: 99 (RA) Pulse Ox Interpretation: Normal - Other Rad CXR X-Ray: Viewed By Me, Read By Radiologist Interpretation: IMPRESSION: No active disease. - CT Scan/US CT Head Other Rad Studies (CT/US): Read By Radiologist CT/US Interpretation: IMPRESSION: Left paracentral large masslike hypodensity with surrounding edema.. Diagnosis of exclusion is a intracranial mass. Ischemia/infarct changes are not excluded. Disposition - Disposition Referrals: [facility] [Outside] [facility] [employer] [facility] [Outside] [facility] [Outside] Yue Ochoa MD [Staff Provider] - Additional Instructions: take Keppra 500 mg twice a day to help prevent seizures Follow-up @ [facility] Neuro[facility]- call for appt or present to their ER the brain mass you have may require NeuroNavigation Equipment not available in the [employer] [facility] May follow-up w Dr. Ochoa- Neurologist- regarding seizure medicines and seizures probably related to your brain mass. Prescriptions: levETIRAcetam [Keppra] 500 mg PO BID #60 tab Instructions: Seizures, Adult (DC), Brain Tumor, Adult (DC) Forms: [employer] (Romanian) - Clinical Impression Clinical Impression: Brain mass, Seizure
[2018-03-08 16:19] VITALS: BP 124/81; PULSE 86; RESP 18; TEMP 98.6
--- NOTE | 2018-03-08 19:19 | C.PDOC ---
ED Additional Note - Physician Additional Note Physician Additional Note: I was called by ER physician for evaluation of abnormal CAT scan. Ct report showed brain mass with edema. I asked ER physician to call and discuss with neurosurgeon promotions assistant .
--- NOTE | 2018-03-09 11:37 | CARD ---
APPROVED REPORT Date of service: 03/08/2018 EKG Measurement Heart [id number] CT [id number] <Conclusion> Normal sinus rhythm Nonspecific ST and T wave abnormality Abnormal ECG
== END 2018-03-08 16:49 | disposition home or self-care (01) ==
LOC: C.ER 13:44
DX: R56.9 Unspecified convulsions (principal); G93.9 Disorder of brain, unspecified

== ENCOUNTER 2018-05-27 01:00 | Inpatient (IN) | payer SELFPAY ==
[2018-05-27 01:32] LABS: BASO # 0.1 K/uL (0.0-0.2); BASO % 0.8 % (0.0-2.0); EOS # 0.2 K/uL (0.0-0.7); HEMOGLOBIN 9.2 g/dL (11.0-16.0); LYMPH # 4.6 K/uL (1.0-4.3); MEAN CELL VOLUME 75.6 fL (81.0-99.0); MEAN CORPUSCULAR HEMOGLOBIN 23.5 pg (27.0-31.0); MEAN CORPUSCULAR HGB CONC 31.1 g/dL (33.0-37.0); MEAN PLATELET VOLUME 7.7 fL (7.2-11.7); MONO # 0.8 K/uL (0.0-0.8); MONO % 7.3 % (0.0-10.0); NEUT # 5.3 K/uL (1.8-7.0); NEUT % 47.9 % (50.0-75.0); RBC 3.89 Mil/uL (3.80-5.20); RED CELL DISTRIBUTION WIDTH 16.1 % (11.5-14.5); WHITE BLOOD COUNT 11.1 K/uL (4.8-10.8)
[2018-05-27] MEDS ORDERED: Sodium Chloride 0.9% 1,000 ML ONE ×3 (01:33→09:34)
[2018-05-27 01:41] LABS: ALB/GLOB RATIO 1.4 (1.0-2.1); ALBUMIN 4.4 g/dL (3.5-5.0); ALT/SGPT 11 U/L (9-52); AST/SGOT 17 U/L (14-36); BLOOD UREA NITROGEN 13 mg/dL (7-17); CALCIUM 9.3 mg/dl (8.6-10.4); GFR NON-AFRICAN AMERICAN > 60
[2018-05-27] MEDS ORDERED: Sodium Chloride 0.9% 1,000 ML IV ONE ×2 (01:50→02:34)
[2018-05-27 02:49] LABS: HCG,QUALITATIVE URINE POSITIVE (NEGATIVE)
[2018-05-27 02:51] LABS: SQUAMOUS EPITHIAL < 1 /hpf (0-5); URINE BACTERIA RARE (<OCC); URINE BILIRUBIN NEGATIVE (NEGATIVE); URINE BLOOD 3+ (NEGATIVE); URINE CLARITY Clear (Clear); URINE COLOR Straw (YELLOW); URINE GLUCOSE (UA) NORMAL (Normal); URINE LEUKOCYTE ESTERASE NEG Leu/uL (Negative); URINE PROTEIN NEGATIVE (NEGATIVE); URINE UROBILINOGEN NORMAL mg/dL (0.2-1.0)
--- NOTE | 2018-05-27 04:28 | C.PDOC ---
History Of Present Illness 37 year old female presents to the ED with her spouse for evaluation of heavy vaginal bleeding which began at around 20:00 today. Patient underwent a dilation and curettage procedure for termination of around 4 weeks ago. Patient states she had very minimal bleeding following the procedure. Current episode is patient's first episode of vag bleeding following the procedure. Patient states she has never experienced such heavy bleeding as right now, and reports she has been changing pads every ten minutes. She also reports slight dizziness. Pt has known h/o of ? malignant brain tumor and is scheduled for surgery in jun 2018. She denies abdominal pain, back pain, clots or tissue. History obtained by patient's spouse, who is at bedside. Time Seen by Provider: 05/27/18 01:18 Chief Complaint (Nursing): Female Genitourinary History Per: Patient, Family (spouse ) History/Exam Limitations: no limitations Onset/Duration Of Symptoms: Hrs Current Symptoms Are (Timing): Still Present Additional History Per: Patient Abnormal Vaginal Bleeding: Yes Past Medical History Reviewed: Historical Data, Nursing Documentation, Vital Signs Vital Signs: Last Vital Signs Temp 98.8 F 05/27/18 01:09 Pulse 100 H 05/27/18 01:09 Resp BP 108/73 05/27/18 01:09 Pulse Ox 100 05/27/18 01:09 - Medical History PMH: Seizures Surgical History: Family History: States: Unknown Family Hx - Social History Hx Alcohol Use: No Hx Substance Use: No - Immunization History Hx Tetanus Toxoid Vaccination: No Hx Influenza Vaccination: No Hx Pneumococcal Vaccination: No Review Of Systems Gastrointestinal: Negative for: Abdominal Pain Genitourinary: Positive for: Vaginal Bleeding Musculoskeletal: Negative for: Back Pain Neurological: Positive for: Dizziness Physical Exam - Physical Exam Appears: Non-toxic, No Acute Distress Skin: Warm, Dry, Pale (slight) Head: Atraumatic, Normacephalic Eye(s): bilateral: Normal Inspection Oral Mucosa: Moist Neck: Supple Chest: Symmetrical, No Deformity, No Tenderness Cardiovascular: Rhythm Regular Respiratory: Normal Breath Sounds, No Rhonchi, No Wheezing Gastrointestinal/Abdominal: Soft, No Tenderness, No Guarding, No Rebound Pelvic: Vaginal Bleeding (active ), No Cervical Motion Tenderness, No Adnexal Tenderness, Other (cervical os is closed ) Neurological/Psych: Oriented x3, Normal Speech, Normal Cognition Gait: Steady ED Course And Treatment - Laboratory Results Result Diagrams: 05/27/18 04:48 05/27/18 01:29 O2 Sat by Pulse Oximetry: 100 (on RA ) Pulse Ox Interpretation: Normal - CT Scan/US pelvic ultrasound Other Rad Studies (CT/US): Read By Radiologist, Radiology Report Reviewed CT/US Interpretation: Ultrasound of the pelvis, transvaginal. Indication: Pain and vaginal bleeding after D&C 3 weeks ago. Technique: Transvaginal real-time ultrasound images were obtained. Findings: Thick heterogeneous endometrium with increased vascularity. The endometrium measures 17.8 mm in thickness. Unremarkable cervix measuring 3.6 cm in length. The uterus measures 9.3x7.7x6.7 cm. Normal left ovary. Right ovarian cyst measuring 1.4 cm. The left ovary measures at 10.1 cc in volume. The right ovary measures 17.6 cc in volume. Impression: Heterogeneously thickened endometrium containing debris with increased vascularity, probably retained products of conception. Minimal fluid in the endometrial cavity. Right ovarian simple cyst. No evidence of ovarian torsion. Progress Note: Bloodwork, urinalysis, Pelvic Ultrasound ordered. IV Fluids and Tylenol PO given. Patient has beta count of 257. Ultrasound result was reviewed. Case discussed with Dr. Morgan (patient's CARD DECORATOR), who would like Angela Dietrich (CARD DECORATOR installation tech) to evaluate the patient at bedside. Pt was evaluated by Dr Conway at bedside whorequested that US be reviewed by in-house radiologist in morning for final disposition. Pt and relative understand plan. Pt remained stable in no painful or hematologic distress, VSS Disposition - Disposition Disposition Time: 07:01 Condition: STABLE Forms: [employer] (Macedonian) - Clinical Impression Clinical Impression: Vaginal bleeding - PA / INFORMATION SECURITY MANAGER / Resident Statement MD/DO has reviewed & agrees with the documentation as recorded. - Scribe Statement The provider has reviewed the documentation as recorded by the Scribe (Kat Conway) All medical record entries made by the Scribe were at my direction and personally dictated by me. I have reviewed the chart and agree that the record accurately reflects my personal performance of the history, physical exam, m edical decision making, and the department course for this patient. I have also personally directed, reviewed, and agree with the discharge instructions and disposition. Physician Patient Turnover Patient Signed Over To: Tamika Ramirez Handoff Comments: Pending official US report for OB reassessment and plan
[2018-05-27 04:53] LABS: HEMOGLOBIN 8.1 g/dL (11.0-16.0); MEAN CELL VOLUME 76.1 fL (81.0-99.0); MEAN CORPUSCULAR HEMOGLOBIN 23.8 pg (27.0-31.0); MEAN CORPUSCULAR HGB CONC 31.2 g/dL (33.0-37.0); MEAN PLATELET VOLUME 7.4 fL (7.2-11.7); RBC 3.4 Mil/uL (3.80-5.20); RED CELL DISTRIBUTION WIDTH 16.3 % (11.5-14.5); WHITE BLOOD COUNT 10.5 K/uL (4.8-10.8)
--- NOTE | 2018-05-27 06:02 | CP.PCM.CON ---
History of Present Illness - History of Present Illness History of Present Illness: vaginal bleeding history obtained from patient and in Bolivian and [place] 37 yo s/p D&C for elective termination done in the office of Dr. Morgan approximately 3-4 weeks ago. Since then the patient has been having some vaginal bleeding but denies pain. She has been following up in Dr. Morgan's office and having in office ultrasounds. The patient and her were told that everything was normal. Last night at around 8pm she had heavy vaginal bleeding that soaked through her clothing. She came to the hospital around midnight and passed some clots. Since then her bleeding has subsided and she has only changed one pad. She denies feeling dizzy, feeling short of breath or having chest pain. The patient also has a brain tumor. She had a seizure and upon workup was informed of a brain mass. She has been following with neruologist Dr. Herndon ([facility]) and neurosurgeon Dr. mSith ([facility]). She has brain surgery scheduled in Jun 2018. Review of Systems - Review of Systems Systems not reviewed;Unavailable: Language Barrier (history obtained in [place] from patient and in Bol[place]ian from ) - Constitutional Constitutional: As Per HPI - Genitourinary Genitourinary: As Per HPI - Reproductive: Female Reproductive:Female: As Per HPI Past Patient History - Infectious Disease Hx of Infectious Diseases: None - Past Medical History & Family History Past Family History: Reviewed and not pertinent - Past Social History Smoking Status: Never Smoked - NEUROLOGICAL Hx Neurological Disorder: Yes (brain tumor) Hx Seizures: Yes - GENITOURINARY/GYNECOLOGICAL Hx Sexually Transmitted Disorders: No : 3 Para: 1 (CS in [place] ) Termination of : 1 - PSYCHIATRIC Hx Substance Use: No - SURGICAL HISTORY Hx Surgeries: Yes Hx Section: Yes (1) Other/Comment: in office D&C - ANESTHESIA Hx Anesthesia: No Hx Anesthesia Reactions: No Meds Allergies/Adverse Reactions: Allergies Allergy/AdvReac Type Severity Reaction Status Date / Time No Known Allergies Allergy Verified 03/08/18 13:55 Physical Exam - GI/Abdominal Exam GI & Abdominal Exam: Normal Bowel Sounds, Soft - Exam Speculum exam: NORMAL SPECULUM EXAM Bimanual exam: NORMAL BIMANUAL EXAM (no vaginal bleeding, retroverted small uterus, closed cervix) Results - Vital Signs Recent Vital Signs: Last Vital Signs Temp 98.8 F 05/27/18 01:09 Pulse 92 H 05/27/18 05:50 Resp 18 05/27/18 05:50 BP 117/78 05/27/18 05:50 Pulse Ox 99 05/27/18 05:50 - Labs Result Diagrams: 05/27/18 04:48 05/27/18 01:29 Labs: Laboratory Results - last 24 hr 05/27/18 05/27/18 05/27/18 01:29 01:29 02:44 WBC 11.1 H RBC 3.89 Hgb 9.2 L D Hct 29.5 L MCV 75.6 L MCH 23.5 L MCHC 31.1 L RDW 16.1 H Plt Count 332 MPV 7.7 Neut % (Auto) 47.9 L Lymph % (Auto) 42.0 H [place] % (Auto) 7.3 Eos % (Auto) 2.0 Baso % (Auto) 0.8 Neut # (Auto) 5.3 Lymph # (Auto) 4.6 H [place] # (Auto) 0.8 Eos # (Auto) 0.2 Baso # (Auto) 0.1 Sodium 140 Potassium 3.8 Chloride 105 Carbon Dioxide 22 Anion Gap 17 BUN 13 Creatinine 0.5 L Est GFR ( Amer) > 60 Est GFR (Non-Af Amer) > 60 Random Glucose 121 H Calcium 9.3 Total Bilirubin 0.2 AST 17 ALT 11 Alkaline Phosphatase 82 Total Protein 7.5 Albumin 4.4 Globulin 3.1 Albumin/Globulin Ratio 1.4 Beta HCG, Quant 257.97 Urine Color Straw Urine Clarity Clear Urine pH 6.0 Ur Specific [place] 1.003 Urine Protein Negative Urine Glucose (UA) Normal Urine Ketones Negative Urine Blood 3+ H Urine Nitrate Negative Urine Bilirubin Negative Urine Urobilinogen Normal Ur Leukocyte Esterase Neg Urine WBC (Auto) 3 Urine RBC (Auto) 94 H Ur Squamous Epith Cells < 1 Urine Bacteria Rare Urine HCG, Qual Positive 05/27/18 04:48 WBC 10.5 RBC 3.40 L Hgb 8.1 L Hct 25.9 L MCV 76.1 L MCH 23.8 L MCHC 31.2 L RDW 16.3 H Plt Count 283 MPV 7.4 Neut % (Auto) Lymph % (Auto) [place] % (Auto) Eos % (Auto) Baso % (Auto) Neut # (Auto) Lymph # (Auto) [place] # (Auto) Eos # (Auto) Baso # (Auto) Sodium Potassium Chloride Carbon Dioxide Anion Gap BUN Creatinine Est GFR ( Amer) Est GFR (Non-Af Amer) Random Glucose Calcium Total Bilirubin AST ALT Alkaline Phosphatase Total Protein Albumin Globulin Albumin/Globulin Ratio Beta HCG, Quant Urine Color Urine Clarity Urine pH Ur Specific [place] Urine Protein Urine Glucose (UA) Urine Ketones Urine Blood Urine Nitrate Urine Bilirubin Urine Urobilinogen Ur Leukocyte Esterase Urine WBC (Auto) Urine RBC (Auto) Ur Squamous Epith Cells Urine Bacteria Urine HCG, Qual Assessment & Plan - Assessment and Plan (Free Text) Assessment: 27 yo with vaginal bleeding Plan: vaginal bleeding currently subsided, vitals stable Hb reviewed, s/p 2L fluids in emergency department consider return or menses vs. retained products? final US reading is pending current beta hcg 257, preprocedure beta unavailable recommend to review final US before considering any intervention if surgical intervention is needed may need further evaluation or clearance as to type of anesthesia as patient has brain mass case, results and recommendations discussed at length patient, and Emergency Dept PA will endorse to oncoming physician
--- NOTE | 2018-05-27 09:12 | US ---
Date of service: 05/27/2018 HISTORY: vag bleed, (+) bquant COMPARISON: Comparison is made to the previous study dated 05/26/2017 TECHNIQUE: Transabdominal and endovaginal ultrasound examination of the pelvis was performed. FINDINGS: UTERUS: Measures 13.6 x 5.2 x 6.1 cm. Normal in size and appearance. No fibroid or other mass lesion seen. ENDOMETRIUM: Measures 21 mm in diameter. The endometrium is heterogeneous thick with diffuse increased vascularity. There is a trace amount of fluid also noted. CERVIX: No cervical abnormality identified. RIGHT OVARY: Measures 3.8 x 2.5 x 3.3 cm. No solid mass. Normal flow. There is a cyst seen in the right ovary measures 1.7 x 1.7 x 1.6 centimeter. LEFT OVARY: Measures 3.3 x 1.5 x 3.3 cm. No solid mass. Normal flow. FREE FLUID: No significant free fluid noted. OTHER FINDINGS: None. IMPRESSION: Heterogeneous thick endometrium versus vascular lesion adjacent to the endometrium in the anterior uterine wall. The differential consideration includes retained product of conception versus vascular lesion adjacent to the endometrium in the anterior uterine wall. 1.7 centimeters cyst in the right ovary. Preliminary report was submitted by [facility] Radiology contains concordant findings.
[2018-05-27] MEDS ORDERED: Sodium Chloride 0.9% 1,000 ML IV SCH ×2 (09:30→14:30)
[2018-05-27 12:44] VITALS: O2SAT 100
[2018-05-27] MEDS ORDERED: Propofol 10 mg/ml Inj (20 ML) ONE (13:49)
[2018-05-27] MEDS ORDERED: Midazolam 2 MG/2 ML VIAL ONE (13:49)
[2018-05-27] MEDS ORDERED: Lidocaine Hydrochloride 5 ML INJ ONE (13:50)
[2018-05-27] MEDS ORDERED: Doxycycline 100 mg Inj ONE (13:59)
[2018-05-27] MEDS ORDERED: Silver Nitrate Topical - Stick ONE (14:15)
[2018-05-27 15:03] VITALS: TEMP 97
--- NOTE | 2018-05-27 15:31 | PCM.SURG1 ---
Surgeon's Initial Post Op Note - Surgeon's Notes Surgeon: Nuno Guerrero Revenue Accountant: none Type of Anesthesia: General Mask Pre-Operative Diagnosis: Retained products of conception Operative Findings: 11cm sounded uterus, no active bleeding, minor blood clots in vaginal vault Post-Operative Diagnosis: same Operation Performed: Suction D&C Specimen/Specimens Removed: Products of conception Estimated Blood Loss: EBL {In ML}: 5 Blood Products Given: N/A Drains Used: No Drains Post-Op Condition: Good Date of Surgery/Procedure: 05/27/18 Time of Surgery/Procedure: 14:30
[2018-05-27 15:59] VITALS: BP 115/65; PULSE 85; RESP 21
--- NOTE | 2018-05-28 10:51 | OP ---
PROCEDURE DATE: 05/27/2018 PREOPERATIVE DIAGNOSIS: Retained products of conception. POSTOPERATIVE DIAGNOSIS: Retained products of conception. PROCEDURE: Suction dilatation and curettage. SURGEON: Nuno Guerrero DO FINDINGS: A 11-cm sized uterus, no active bleeding from the vault, about 3 mL of old blood clots in the vault. SPECIMEN REMOVED: Products of conception. ESTIMATED BLOOD LOSS: 5 mL. DESCRIPTION OF PROCEDURE: The patient was taken to the operating room where general mask anesthesia was found to be adequate. She was then prepped and draped in a sterile fashion in dorsal lithotomy position by Keven king. A weighted speculum and vaginal wall retractor were used with adequate visualization of the cervix. Anterior lip of the cervix was grasped with a single tooth tenaculum. The uterus sounded to 11 cm and serially dilated. A curved 8-Peruvian curette was used. Suction curetting was performed. Products of conception were extracted. At this point after several pauses, sharp curettings were taken on the anterior posterior and lateral orozco of the endometrial cavity. Final suction curetting was performed until all products of conception were removed. The single-tooth tenaculum was removed. Hemostasis was achieved on the tenaculum site using silver nitrate sticks. Methergine 0.2 mg was given IM intraoperatively. Hemostasis was adequate. The patient tolerated the procedure well. All instruments were removed from vagina. Sponge, lap, and needle counts were correct x2. The patient tolerated the procedure well and sent to recovery room in stable condition. Nuno Guerrero DO Job # [id number] [facility]
--- NOTE | 2018-05-28 17:20 | CARD ---
APPROVED REPORT Date of service: 05/27/2018 EKG Measurement Heart [id number] <Conclusion> Normal sinus rhythm Prolonged QT Abnormal ECG
== END 2018-05-27 17:41 | disposition home or self-care (01) | DRG 770 ==
LOC: C.ER 01:00 → C.9E 10:18 → C.4M 12:32
PROVIDERS: ADMIT Obstetrics & Gynecology; ATTEND Obstetrics & Gynecology
PROC: 10D17ZZ Extraction of Products of Conception, Retained, Via Natural or Artificial Opening (ICD-10-PCS; principal; 2018-05-27 13:00)
DX: O03.4 Incomplete spontaneous abortion without complication (principal); N93.9 Abnormal uterine and vaginal bleeding, unspecified